=== PATIENT | female | born 1940 | race Caucasian/White ===

== ENCOUNTER 2024-10-18 17:15 | Emergency (ER) | payer MEDICARE, BC ==
[~2024-10-18] VITALS: Ht 167.6 cm; Wt 59.0 kg
[2024-10-18 18:04] VITALS: BP 190/87; TEMP 98.4
[2024-10-18 18:50] VITALS: O2SAT 98
== END 2024-10-18 18:52 | disposition home or self-care (01) ==
LOC: ER 17:29
DX: S51.812A Laceration without foreign body of left forearm, initial encounter (principal); I10 Essential (primary) hypertension; X58.XXXA Exposure to other specified factors, initial encounter; Y93.89 Activity, other specified; Y92.89 Other specified places as the place of occurrence of the external cause; Y99.8 Other external cause status